=== PATIENT | male | born 1950 ===

== ENCOUNTER 2017-12-23 14:50 | Outpatient (CLI) | payer OTHER ==
[~2017-12-23 14:50] MED LIST: BENICAR40 MG; CIALIS5 MG; CLONAZEPAM1 MG; LIVALO2 MG; TOPROL XL25 M1
== END 2017-12-23 14:51 | disposition home or self-care (01) ==
LOC: EKG 14:50
DX: Z01.810 Encounter for preprocedural cardiovascular examination (principal)

== ENCOUNTER 2019-06-12 18:18 | Emergency (ER) | payer OTHER ==
[~2019-06-12] VITALS: Ht 172.7 cm; Wt 77.1 kg
[2019-06-12] MEDS ORDERED: AVAPRO300 MG (18:31)
[2019-06-12] MEDS ORDERED: CRESTOR10 MG (18:31)
[2019-06-12] MEDS ORDERED: NORVASC5 MG (18:32)
== END 2019-06-12 20:24 | disposition home or self-care (01) ==
LOC: ER 18:18
DX: S60.221A Contusion of right hand, initial encounter (principal); W18.09XA Striking against other object with subsequent fall, initial encounter; Y93.89 Activity, other specified; Y92.018 Other place in single-family (private) house as the place of occurrence of the external cause; Y99.8 Other external cause status